=== PATIENT | male | born 1940 | race Caucasian/White ===

== ENCOUNTER 2023-12-19 09:24 | Inpatient (IN) | payer MEDICARE, BC, SELFPAY ==
[2023-12-17 15:09] VITALS: BP 163/74
[2023-12-17 15:33] LABS: % Basophils 0.5 % (0-2); % Eosinophils 1.4 % (0-6); % Immature Granulocytes 0.3 % (0-0.5); % Lymphocytes 16.3 % (20.5-51.1); % Neutrophils 74.5 % (42.2-75.2); Absolute Eosinophils 0.1 10^3/uL (0-0.7); Absolute Lymphocytes 1.1 10^3/uL (1.2-3.4); Absolute Monocytes 0.5 10^3/uL (0.1-0.6); Absolute Neutrophils 4.9 10^3/uL (1.4-6.5); Hematocrit 36.6 % (39.0-52.0); Hemoglobin 12.9 g/dL (13.0-18.0); Mean Corp Hgb Conc. 35.2 g/dL (33.0-37.0); Mean Corpuscular Hgb 29.5 pg (27.0-31.0); Mean Corpuscular Volume 83.6 fL (80.0-94.0); Mean Platelet Volume 8.9 fL (7.4-10.4); Nucleated Red Blood Cells % 0 % (-); Platelet Count 109 10^3/uL (130-400); Red Blood Cell Count 4.38 10^6/uL (4.70-6.10); Red Cell Dist. Width 13.1 % (11.5-14.5); White Blood Cell Count 6.6 10^3/uL (4.8-10.8)
[2023-12-17 15:57] LABS: ALT (SGPT) 22 U/L (0-50); AST (SGOT) 28 U/L (17-59); Albumin 3.9 g/dl (3.5-5.0); Alkaline Phosphatase 43 U/L (38-126); Blood Urea Nitrogen 22 mg/dl (9-20); Calcium 9.3 mg/dl (8.4-10.2); Carbon Dioxide 27 mmol/L (22-30); Chloride 101 mmol/L (98-107); Glucose 100 mg/dl (70-99); Sodium 138 mmol/L (135-145); Total Bilirubin 0.7 mg/dl (0.2-1.3); Total Protein 6.4 g/dl (6.3-8.2); eGFR > 60.00
[2023-12-17 16:06] LABS: Troponin I < 0.012 ng/ml
[2023-12-17 16:17] VITALS: BP 149/62
--- NOTE | 2023-12-17 16:34 | CON.CAR ---
Addendum entered and electronically signed by Fly Ordonez DO 12/17/23 20:58:
I saw and examined the patient.
The Slag Mixer's note was reviewed and I agree with the note.
Comment:
Plan:
Chest pain with radiation to left shoulder typical of his prior angina.
Cont to trend troponin
Discussed options and pt is agreeable and would prefer cardiac cath to eval coronary anatomy.
Check echo
Add beta efraín, Toprol XL 25 mg tonight
Monitor Bps
Hold ARB in anticipation of cath.
Cont ASA
Check lipids. He has h/o statin intolerance. Continue Vascepa.
Discussed with his primary feedlot manager.
�
Original Note:
Consultation
Consultation Request
Date/Time Consultation Requested: 12/17/2023
Date/Time Consultation Performed: 12/17/2023
Requesting Provider: Dr. Rockwell
Performing Provider: Dr. Ordonez
Reason for Consultation: Chest pain
Medical History
-
History of Present Illness:
HPI: Patient came to [facility] today with chest pain and cardiology was asked to evaluate in the ER. Patient spends part of the year in [place] and reports episodes of chest pain with emotional distress earlier this year, but no symptoms with exertion.
Patient came to [facility] today after an episode of exertional chest pain while on a walk yesterday. patient was less than 10 minutes into his usual 30 minute walk yesterday when he started with chest pain into his left shoulder which is his anginal
equivalent. Pain improved with rest. No pain at rest. No recurrence of pain. 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 Patient with h/o multiple PCIs and then finally CABG in 2014, which is almost 10 years ago.
PMH:
CAD
s/p CABG X3 (ROBLES to LAD, SVG sequential to D1 and OM) 02/2014
prior intervention 1994/1999/
Paroxysmal atrial fibrillation, post-op without recurrence
HTN
Hyperlipidemia
Statin intolerance
CKD 3, solitary kidney
Gout
RBBB
Bullous pemphigoid
Past Medical History
Past Medical History: Other (In HPI)
Past Surgical History: Cardiac (CABG x 3 in 02/2014), Tonsilectomy and Other (Left nephrectomy, hernia repair)
Social History
Tobacco: Former Smoker
Alcohol: Occasional
Personal:
Living: With Family
Employment: Retired
Family History
Family History: CAD
Allergies / Home Medications
Allergy/AdvReac Type Severity Reaction Status Date / Time
atorvastatin calcium Allergy personality Verified 12/17/23 15:15
[From Lipitor] changes
and muscle
problems .
fenofibrate nanocrystallized Allergy muscle Verified 12/17/23 15:15
[From Tricor] problems
and
persoality
changes
fenofibrate,micronized Allergy muscle Verified 12/17/23 15:15
[From Tricor] problems
and
personality
changes
lovastatin [From Mevacor] Allergy personality Verified 12/17/23 15:15
changes
and muscle
problems
simvastatin [From Zocor] Allergy personality Verified 12/17/23 15:15
changes
and muscle
problems
�Medication �Instructions �Recorded �Confirmed �Type
rosuvastatin 5 mg tablet 5 mg PO DAILY High cholesterol 10/08/20 07/11/21 History
allopurinol 100 mg tablet 50 mg PO DAILY Gout 10/21/20 07/11/21 History
icosapent ethyl 1 gram capsule 1 gm PO DAILY High cholesterol 10/21/20 07/11/21 History
(Vascepa)
prednisone 10 mg tablet 2.5 mg PO DAILY inflammation 10/21/20 07/11/21 History
tamsulosin 0.4 mg capsule 0.4 mg PO QPM Urinary issue 10/21/20 07/11/21 History
amlodipine 2.5 mg tablet 2.5 mg PO QPM Blood pressure 02/08/21 07/11/21 History
aspirin 81 mg tablet,delayed 81 mg PO DAILY Blood clot 02/08/21 07/11/21 History
release prevention/tx
losartan 25 mg tablet 25 mg PO DAILY Blood pressure 02/08/21 07/11/21 History
Review of Systems
-
History Source: Patient
All other systems: Negative unless noted
Physical Exam
Vital Signs
Temp Pulse Resp BP Pulse Ox
98.4 F 67 16 163/74 96
12/17/23 15:09 12/17/23 15:09 12/17/23 15:09 12/17/23 15:09 12/17/23 15:09
GEN: NAD. AAOx3
HEENT: EOMI, MMM
LUNGS: CTA B/L, no wheezes or rales
CV: Reg, S1/S2, 2/6 BSM
ABD: soft, BS+, NT, ND
EXT: No clubbing, cyanosis, lesions or edema B/L
NEURO: Gross non-focal
SKIN: Gouty tophi. No rash
Lab Results
12/17/23 15:22
12/17/23 15:22
Troponin I < 0.012 ng/ml 12/17/23 15:22
Impression / Plan
-
PCP: Dr. Cruz
Serging Machine Operator Automatic: Dr. Cherry Sanchez
Impression:
Presented with chest discomfort
Frequent PACs and PVCs
CAD
s/p CABG X3 (ROBLES to LAD, SVG sequential to D1 and OM) 02/2014
prior intervention/stents 1994/1999/2002/2012
Paroxysmal atrial fibrillation, post-op without recurrence
HTN
Hyperlipidemia
Statin intolerance
CKD 3, solitary kidney
Gout, tophaceous gout
RBBB
h/o bullous pemphigoid
Exercise nuclear stress test 10/30/2019: Patient completed 9 minutes and 0 seconds of the Eric protocol achieving 10 METS and 88% maximum predicted heart rate. Perfusion imaging reveals a small area of mildly decreased perfusion that is fixed in the
basal inferior segment, mid anterior segment, consistent with soft tissue attenuation. EF 51%.
Echo 01/31/2018: EF 55 to 60%, mild to moderate concentric LVH, no R WMA, trace TR, estimated PAP 27 mmHg
Echo 10/28/19: EF 55-60%, moderate LVH, mild MR, mild AI, normal RV
Plan:
-Patient came to [facility] today with chest pain and cardiology was asked to evaluate in the ER. Patient spends part of the year in [place] and reports episodes of chest pain with emotional distress earlier this year, but no symptoms with exertion.
Patient came to [facility] today after an episode of exertional chest pain while on a walk yesterday. patient was less than 10 minutes into his usual 30 minute walk yesterday when he started with chest pain into his left shoulder which is his anginal
equivalent. Pain improved with rest. No pain at rest. No recurrence of pain. 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 Patient with h/o multiple PCIs and then finally CABG in 2014, which is almost 10 years ago.
-Troponin undetectable x1. Recheck in 3 hours.
-Will plan on cardiac cath in AM
-ECG without acute ischemic changes as reviewed by me.
-Frequent PACs and PVCs on ECG and patient reports palpitations going back many months. Patient is not taking any AV lizbeth blockers. Will add Lopressor 12.5 mg BID
-Cont aspirin 81 mg daily
-Hold losartan in anticipation of cath
-Check echo
-Chest x-ray pending
-He has h/o statin intolerance. Continue Vascepa.
-Check CVE
--- NOTE | 2023-12-17 16:58 | ED.GENMED ---
History of Present Illness
General
Chief Complaint: Chest Pain
Source: patient, records and physician (Affiliate Marketing Specialist)
Exam Limitations: none
Time Seen by Provider: 12/17/23 16:29
Nursing documentation reviewed up to this point in time: agreed with
History of Present Illness
History of Present Illness:
83-year-old male with past medical history of hypertension, hyperlipidemia, DVT, renal cancer status post nephrectomy, CAD status post stents and CABG (follows with Dr. Cherry Sanchez for cardiology) who presents to the emergency department
referred by his business education instructor for evaluation of chest pain. Patient reports that for the past few days he has been having occasional pains in the left shoulder�he says that he thought that they could be related to a rotator cuff issue but yesterday
he had some exertional chest pain rating to the shoulder that felt similar to prior anginal symptoms. Notified his business education instructor and he was sent to the ER for evaluation. He did have some mild dizziness but denies any other symptoms yesterday. He
denies any chest pain at present.
Past History
Past History
ED Past Medical History: CAD and Other (Coronary artery disease status post stents, hypertension, hyperlipidemia, gout, arthritis)
ED Past Surgical History: Cardiac
Social History
Tobacco: Non-smoker
Alcohol: Occasional
Drug: Former user
Personal: Single
Living: with family
Employment: Retired
Family History
Family History: CAD
Review of Systems
Review of Systems
All Other Systems: ROS reviewed and negative except as documented in HPI and ROS
Respiratory: Denies trouble breathing
Cardiac: Reports chest pain; Denies palpitations
ABD/GI: Denies abdominal pain
Musculoskeletal: Reports joint pain (Shoulder pain)
Neurological: Reports dizzy
Phy Exam
Physical Exam
Physical Exam:
General: Awake, alert, oriented x3 and quite pleasant; no acute distress
Head: Normocephalic, atraumatic
Eyes: Conjunctiva normal, sclera anicteric
Throat: Airway intact, handling secretions
Neck: Trachea midline, no JVD noted
Lungs: Clear to auscultation bilaterally, no wheezing, rales, rhonchi
Heart: Regular rate and rhythm, no murmurs, gallops, or rubs appreciated
Neuro: No gross deficits
Extremities: No edema in extremities, warm and well-perfused
Scores
Heart Failure Risk
Heart Failure Risk Score: Not Applicable
Heart Score for Chest Pain Patients
STEMI patient?: No
History: Highly Suspicious
ECG: Nonspecific Repolarization
Age: >/= 65 years
Risk Factors: >/= 3 Risk Factors or History of CAD
Troponin: </= Normal Limit
Heart Score for Chest Pain Patients: 7
Heart Score Risk: 72.7 % MACE over next 6 weeks
Withdrawal Assessment of Alcohol
Withdrawal Assessment Completed?: Not applicable
Course
Orders/Labs/Results
Orders:
Orders
12/17/23 14:39
Electrocardiogram (*1) Urgent
Reason for Study: Chest Pain
EKG- Treatment ONCE
12/17/23 15:22
Complete Blood Count/With Diff Urgent
Comprehensive Metabolic Panel Urgent
Troponin I Urgent
12/17/23 16:30
CR Chest - 2 Views Urgent
Comment:
Reason For Exam: chest pain
12/17/23 16:57
CARDIOLOGY CONSULT Urgent
Consulting Provider: Fly Ordonez
Was physician already notified: Yes
12/17/23 17:21
Admit/Transfer Patient As Directed
Co-Sign Provider:
Level of Care: Observation services
Assign to:: IVU
Physician / Group: MIGNON, Dr. Ordonez
Diagnosis: Chest pain, [place]
Reason for Hospitalization: Chest pain, [place]
Expected length of stay greater than two midnights?: Yes
ELOS- Estimated Length of Stay in days: 2
I certify the patient meets the requirements for IP care: Yes
PRN Pain Medication Management As Directed
May give lesser potent ordered pain med per pt: Yes
preference::
Protocol:: Medication orders for pain may be administered in a
manner that supports deferring to patient preference
when the pt is:
- Requesting an ordered lesser potent pain medication.
Least to most potent pain medications are defined
as: acetaminophen < NSAID < tramadol < opioids
(morphine, oxycodone, hydromorphone).
- Requesting a lesser dose of the same medication IF
ORDERED.
- Requesting a less intrusive route of administration
if both routes are prescribed by the provider (PO <
IV).
12/17/23 17:22
Code Status As Directed
Resuscitation Status: Full Code
12/17/23 18:22
Troponin I Urgent
Abnormal Lab Results
12/17/23
15:22
RBC 4.38 L 10^6/uL
(4.70-6.10)
Hgb 12.9 L g/dL
(13.0-18.0)
Hct 36.6 L %
(39.0-52.0)
Plt Count 109 L 10^3/uL
(130-400)
Absolute Lymphs (auto) 1.1 L 10^3/uL
(1.2-3.4)
Lymphocytes % 16.3 L %
(20.5-51.1)
BUN 22 H mg/dl
(9-20)
Glucose 100 H mg/dl
(70-99)
12/17/23 15:22
12/17/23 15:22
Vital Signs
Initial and Last Documented VS:
Initial Vital Signs
Temp Pulse Resp BP Pulse Ox
36.9 C 67 16 163/74 96
12/17/23 15:09 12/17/23 15:09 12/17/23 15:09 12/17/23 15:09 12/17/23 15:09
Last Documented Vital Signs
Temp Pulse Resp BP Pulse Ox
36.9 C 66 14 149/62 99
12/17/23 15:09 12/17/23 16:45 12/17/23 16:45 12/17/23 16:17 12/17/23 16:45
MDM/Problems Addressed
Differential Diagnosis Includes:
Angina/ACS, musculoskeletal pain, GERD, PE considered less likely clinically
MDM/Problems Addressed:
83-year-old male presents to the emergency room for evaluation of exertional chest pain and left shoulder pain similar to prior anginal symptoms. Referred to ER by cardiology. Hypertensive in triage improved by my assessment, rest of vitals
normal. Physical exam as above. EKG shows atrial fibrillation with PVCs, right bundle branch block, no acute ischemic changes. He was seen in triage labs sent off including a CBC which showed marginal anemia as well as some thrombocytopenia with
a platelet count of 109�has been low normal in the past. CMP no clinically significant abnormalities. Initial troponin undetectable. Will trend out troponin. Check chest x-ray. Discussed case with cardiology they are evaluating at bedside.
Reassess after the above.
Cardiology evaluated�plan to admit to their service.
Chronic conditions affecting care:
CAD, hypertension, hyperlipidemia
Chronic conditions affecting care: HTN and CAD
Acute Exacerbation and/or Progression of Chronic Illness:
Acutely hypertensive improved without intervention continue to monitor but no emergent antihypertensives indicated at present
Acute Exacerbation and/or Progression of Chronic Illness: HTN
*Radiology
Radiology exam reviewed: preliminary read by ED provider
*Pulse Oximetry
Patient hypoxic: no
*EKG
Interpreted by ED Provider?: Yes
Heart Rate: 73
Rate: normal
Rhythm: a-fib and PVC's
Interval: normal interval
QRS Pattern: right bundle branch block
Ischemia: no ischemia
*Critical Care Note
Total Time (30-74mins, 75-104mins- exclusive of procedures): Not Applicable
Data Reviewed
Review of Other/Old Records Reveals: Labs and Records
Source: patient, records and physician
Patient Management
Discussion with other providers: Dam Operator (Discussed with cardiology)
Escalation/DeEscalation of care consider admission/obs:
Admission indicated
ED Attending Note
-
Portions of this chart may have been created with voice recognition software.� Occasional wrong word or��sound alike� substitutions may have occurred due to the inherent limitations of voice recognition software.
Discharge Plan
Departure
Patient Disposition: Admit
Date of Disposition: 12/17/23
Time of Disposition: 17:29
Admit to doctor: Laura
Presentation/result/management discussed w/ accepting MD/DO: cardiology
Discharge Problem:
Chest pain
Prescriptions:
No Action
rosuvastatin 5 MG tablet
5 mg PO DAILY
allopurinol 100 MG tablet
100 mg PO DAILY
tamsulosin 0.4 MG capsule
0.4 mg PO QPM
icosapent ethyl [Vascepa] 1 GM capsule
1 gm PO BID
amlodipine 2.5 MG tablet
2.5 mg PO QPM
losartan 25 MG tablet
25 mg PO DAILY
ascorbic acid (vitamin C) [Vitamin C] 500 mg Tablet
500 mg PO DAILY
aspirin 81 mg Tablet,Chewable
81 mg PO DAILY
melatonin 5 mg Tablet
5 mg PO HSPRN PRN (Reason: sleep)
Referrals:
Chidi Cruz MD [Family Provider] -
Interventions
Interventions:
*Risk Screen - Suicide Last Done: 12/17/23 15:09
*General Assessment Last Done: 12/17/23 15:09
*Neglect/Abuse Screening Last Done: 12/17/23 15:09
ED- Cardiac Assessment Last Done: 12/17/23 16:55
Discharge Date and Time
Print Language: YI
[2023-12-17 17:28] VITALS: BMI 25.0
[2023-12-17 18:00] VITALS: BP 146/69
[2023-12-17 19:20] LABS: Troponin I < 0.012 ng/ml
[2023-12-17 19:24] VITALS: BP 172/89
[2023-12-17] MEDS: TOPROL XL 25 MG PO (20:14)
[2023-12-17] MEDS: FLOMAX PO (20:14)
[2023-12-17] MEDS: NORVASC PO (20:14)
[2023-12-17 20:47] VITALS: BP 153/71
--- NOTE | 2023-12-17 21:16 | PTCARENOTE ---
Received patient from ED. SR on the monitor, HR in the 70s. Pts BP 172/89. Order for Toprol obtained from Dr. Ordonez and administered as per APR. Pt oriented to room and plan of care and NPO at midnight discussed with pt, pt verbalizes understanding.
No complaints from pt at this time.
[2023-12-17 23:09] VITALS: BP 145/63
[2023-12-18] VITALS (10 sets, daily range): BP systolic 121–161; BP diastolic 64–82; BMI 25.2
[2023-12-18 03:59] LABS: Blood Urea Nitrogen 21 mg/dl (9-20); Carbon Dioxide 27 mmol/L (22-30); Chloride 103 mmol/L (98-107); Estimated Creatinine Clearance 44 ml/min; Glucose 91 mg/dl (70-99); HDL Cholesterol 26 mg/dl; LDL Cholesterol, Calculated 57 mg/dl; Potassium 4.1 mmol/L (3.5-5.1); Sodium 139 mmol/L (135-145); Total Cholesterol 121 mg/dl (50-199); Triglyceride 192 mg/dl (10-149); Very Low Density Lipoprotein 38 mg/dl (0-30); eGFR > 60.00
[2023-12-18 04:11] LABS: Troponin I 0.015 ng/ml
--- NOTE | 2023-12-18 07:50 | PTCARENOTE ---
Assumed care of pt from prev nsg shift, AAOx3 w/no c/o CP or SOB. Pt ambulating in the rm & halls frequently. Pt's VS stable w/HR in the 60's, & BP this AM 158/69. Pt SR w/freq PVC's on telemetry monitoring. Plan of care discussed w/pt; pt
anticipating cardiac cath today. Pt w/call vazquez within reach & plan of care ongoing.
[2023-12-18] MEDS: CRESTOR 5 MG PO (09:12)
[2023-12-18] MEDS: VITAMIN C 500 MG PO (09:13)
[2023-12-18] MEDS: LOW STRENGTH ASPIRIN 81 MG PO (09:13)
[2023-12-18] MEDS: ZYLOPRIM 100 MG PO (09:13)
[2023-12-18] MEDS: LOPRESSOR 12.5 MG PO ×2 (09:13→19:58)
--- NOTE | 2023-12-18 12:00 | CM ---
Chart reviewed. Patient is independent of ADLS, lives with his in a 1 sTH, ramps to access, 0 DME. Plan is for the patient to return home. CM to follow
--- NOTE | 2023-12-18 14:30 | PTCARENOTE ---
Report given to Madai in the technology lab teacher; pt taken to technology lab teacher in his bed. Tonya Ferris notified pt was taken to technology lab teacher.
--- NOTE | 2023-12-18 14:31 | ITS.CL.CATH ---
Electrologist - Catheterization
Cardiac Catheterization
Procedure Report:
LEFT HEART CATHETERIZATION AND CORONARY OCCLUSION
Date of Procedure: December 18, 2023
Referring: Cherry Sanchez
PROCEDURES:
1. Left heart catheterization, coronary angiogram.
2. Selective graft angiography.
3. Ultrasound-guided access
4. Successful percutaneous coronary artery intervention of focal 80% stenosis in kiana distal LAD via the ROBLES graft with a 2.25 x 15 mm Medtronic [place] frontier drug-eluting stent, postdilated with a 2.25 x 12 mm NC balloon at 18 nguyen with an
excellent angiographic result.
INDICATION: Patient is a 83-year-old gentleman with past medical history of hypertension, hyperlipidemia, statin intolerant, solitary kidney with CKD stage III, chronic right bundle branch block, bullous pemphigoid as a complication after
COVID-vaccine in 2020, coronary artery disease with prior stents, last in 2012 with subsequent CABG in 2014 with a ROBLES to LAD and a saphenous vein graft sequential to D1 and OM completed at [facility], paroxysmal atrial fibrillation,
postoperatively without recurrence, not on any chronic anticoagulation who presents with recurrent episodes of exertional chest discomfort and negative troponins now being referred for left heart catheterization to rule out obstructive CAD.
ACCESS: Left radial artery, 6 [place] sheath, under ultrasound guidance
HEMODYNAMICS : (mmHg)
AO (s/d) : 110/52
LV (s/d) : 117/12
LVEDP : 12
CORONARY FINDINGS
DOMINANCE: Right
LEFT MAIN: Left main appears to be cloacal in origin based on prior caths.
LEFT ANTERIOR DESCENDING: The left main artery is a medium caliber and appears to have a ostial to proximal 100% in-stent occlusion with mid to distal LAD being supplied by a patent ROBLES graft and the diagonal branch being supplied by a patent
saphenous vein graft.
CIRCUMFLEX: The left circumflex artery is a medium caliber vessel with a tubular 80% proximal stenosis with total occlusion in the midportion with OM branches supplied by a patent saphenous vein graft.
RIGHT CORONARY ARTERY: Known to be occluded and therefore was not selectively shot.
GRAFT ANGIOGRAPHY:
1. ROBLES to the LAD: ROBLES conduit is moderately tortuous but otherwise patent. [place] LAD just beyond the touchdown has a focal 80% stenosis which is thought to be the likely culprit of presenting symptoms and intervention was performed.
2. SVG to OM/D1: The saphenous vein graft which is sequential to OM1 and diagonal is widely patent. The conduit between OM1 and diagonal touchdown has a eccentric 50 to 60% stenosis
CORONARY INTERVENTION: Decision was made to move forward with intervention percutaneously of the distal k[place] LAD through the ROBLES graft. The ROBLES was selectively engaged using a 90cm 6 [place] DAVID guide catheter. Additional heparin was given to
maintain a therapeutic ACT throughout the case. Initially we tried wiring with a 190 cm 0.014' run-through coronary wire however given significant tortuosity within the ROBLES graft we could not advance this beyond the third band. This wire was
taken out and we next brought in a 300 cm 0.014' BMW wire through a mini microcatheter and with microcatheter support we were able to navigate the tortuosity with some difficulty and succeeded and placing the wire into the apical LAD. The
microcatheter was taken out. We predilated the lesion using a 2.0 x 10 mm semicompliant balloon and had good expansion. Then we tried to deliver the stent however we could not navigate the tortuosity and therefore brought in a 6 [place] guide liner
for support. Through the guide liner we were able to deliver with significant difficulty a 2.25 x 15 mm Medtronic [place] frontier drug-eluting stent which was deployed at 14 nguyen. The stent was postdilated using a 2.25 x 12 mm NC trek balloon at 18
nguyen with an excellent angiographic result and NELLI-3 flow into the distal vessel. Patient tolerated procedure well with no acute complications. He was loaded with 600 mg of Plavix at the end of the case.
SEDATION: 104 minutes of procedural sedation was utilized. An independent medical chief technician was present to assist with and help manage the patient's level of consciousness and physiologic status.
RADIATION SUMMARY: Fluoro Time (min): 34.4, Dose (mGy): 774.75, DAP (Gy.cm2) : 62.4
Closure Device: Vascular band over the left radial artery, 11 cc of air.
CONCLUSIONS
1. Significant kiana coronary artery disease.
2. Successful percutaneous coronary artery intervention of focal 80% stenosis in kiana distal LAD via the ROBLES graft with a 2.25 x 15 mm Medtronic [place] frontier drug-eluting stent, postdilated with a 2.25 x 12 mm NC balloon at 18 nguyen with an
excellent angiographic result.
3. The saphenous vein graft which is sequential to OM1 and diagonal is widely patent. The conduit between OM1 and diagonal touchdown has a eccentric 50 to 60% stenosis.
4. Normal LVEDP at 12mmHg.
RECOMMENDATIONS
1. Dual antiplatelet therapy with daily baby aspirin and 75 mg of Plavix along with cholesterol lowering medication and beta-efraín as tolerated.
2. Full echocardiogram to assess biventricular function.
3. Wean radial band per protocol.
4. Aggressive management of cardiovascular risk factors.
5. Outpatient referral for cardiac rehab.
Copy to: Duglas Dillon.
Leial Enamorado MD, [facility]
[2023-12-18 16:10] LABS: ACT-LR - POC 295 Seconds (116-155)
[2023-12-18 17:03] LABS: ACT-LR - POC 279 Seconds (116-155)
[2023-12-18] MEDS: FLOMAX 0.4 MG PO (18:30)
[2023-12-18] MEDS: NORVASC 2.5 MG PO (18:30)
--- NOTE | 2023-12-18 21:44 | PTCARENOTE ---
Pt. received at change of shift. Pt. seen and assessed in room. PT. AOX3, VS WNL. Tele reading NSR w/ occasional PVCs 60s-70s. Left radial site c/d/i, began removing air at 191. Continuing to remove air from TR band per protocol. No complaints at
this time. RN verbalized plan of care, pt. verbalized understanding. Call vazquez within reach. Continuing to monitor at this time.
--- NOTE | 2023-12-18 22:46 | PTCARENOTE ---
TR band removed at 2244. Gauze and tegaderm placed on L radial. Pt. instructed not to push up on directed hand. VS WNL. Continuing to monitor at this time.
[2023-12-19 03:01] VITALS: BP 158/80
[2023-12-19 04:21] LABS: Hematocrit 36.4 % (39.0-52.0); Hemoglobin 13.1 g/dL (13.0-18.0); Mean Corpuscular Hgb 29.7 pg (27.0-31.0); Mean Corpuscular Volume 82.5 fL (80.0-94.0); Mean Platelet Volume 9.3 fL (7.4-10.4); Platelet Count 106 10^3/uL (130-400); Red Blood Cell Count 4.41 10^6/uL (4.70-6.10); Red Cell Dist. Width 12.9 % (11.5-14.5)
[2023-12-19 04:30] LABS: Blood Urea Nitrogen 22 mg/dl (9-20); Calcium 8.7 mg/dl (8.4-10.2); Carbon Dioxide 20 mmol/L (22-30); Chloride 105 mmol/L (98-107); Estimated Creatinine Clearance 44 ml/min; Glucose 93 mg/dl (70-99); Sodium 137 mmol/L (135-145); eGFR > 60.00
[2023-12-19 07:08] VITALS: BMI 25.0
[2023-12-19 07:10] VITALS: BP 128/72
--- NOTE | 2023-12-19 07:50 | PTCARENOTE ---
Assumed care of pt from prev nsg shift, AAOx3 w/no c/o CP or SOB. Pt ambulating in the rm frequently. Pt's VS stable w/HR in the 60's, & BP this AM 128/72. Pt SR w/occas PVC's on telemetry monitoring. Pt w/L radial site w/dressing C/D/I w/no signs
or symptoms of bleeding or hematoma. Plan of care discussed w/pt; pt anxious for D/C today. Pt w/call vazquez within reach & plan of care ongoing.
[2023-12-19] MEDS: ZYLOPRIM 100 MG PO (09:04)
[2023-12-19] MEDS: LOPRESSOR 12.5 MG PO (09:05)
[2023-12-19] MEDS: VITAMIN C 500 MG PO (09:05)
[2023-12-19] MEDS: PLAVIX 75 MG PO (09:05)
[2023-12-19] MEDS: CRESTOR 5 MG PO (09:05)
[2023-12-19] MEDS: LOW STRENGTH ASPIRIN 81 MG PO (09:05)
--- NOTE | 2023-12-19 09:23 | W.PN.CARDCBS ---
Addendum entered and electronically signed by Ayesha Hill PA-C 12/19/23 14:23:
[id number]
Addendum entered and electronically signed by Ayesha Hill PA-C 12/19/23 10:55:
Echo completed prior to admission.
Echo 12/19/23: Normal LVEF, stable mild valve disease
Addendum entered and electronically signed by Cherry Sanchez MD 12/19/23 10:15:
I saw and examined the patient.
The Brand Marketing Coordinator's note was reviewed and I agree with the note.
Comment: Status post intervention of LAD. Doing well. We discussed dual antiplatelet therapy. He understands not to interrupt treatment.
Blood pressure at goal. Lipids at goal. Statin intolerance noted. Continue low-dose statin. Continue current medications.
He will increase activity consider cardiac rehab but he may be going to [place] and he will exercise on his own at that time.
Echo pending for discharge. Carotid ultrasound pending.
Close follow-up in the office discussed.
Original Note:
Today's Communication / Plan
-
D/C to home pending echo and carotid u/s
Plan is for d/c to home
Impression / Plan
-
PCP: Dr. Cruz
Barrel Filler: Dr. Cherry Sanchez
Impression:
Presented with chest discomfort
Frequent PACs and PVCs
CAD
s/p CABG X3 (ROBLES to LAD, SVG sequential to D1 and OM) 02/2014
prior intervention/stents /
s/p 2.25 mm Ronnell MAYA to [place] distal LAD via ROBLES graft 12/18/23
Paroxysmal atrial fibrillation, post-op without recurrence
HTN
Hyperlipidemia
Statin intolerance
CKD 3, solitary kidney
Gout, tophaceous gout
RBBB
h/o bullous pemphigoid
Exercise nuclear stress test 10/30/2019: Patient completed 9 minutes and 0 seconds of the Eric protocol achieving 10 METS and 88% maximum predicted heart rate. Perfusion imaging reveals a small area of mildly decreased perfusion that is fixed in the
basal inferior segment, mid anterior segment, consistent with soft tissue attenuation. EF 51%.
Echo 01/31/2018: EF 55 to 60%, mild to moderate concentric LVH, no R WMA, trace TR, estimated PAP 27 mmHg
Echo 10/28/19: EF 55-60%, moderate LVH, mild MR, mild AI, normal RV
Echo 12/19/23: Study pending
Plan:
-Troponin serially normal.
-Check echo, ordered.
-Check carotid u/s.
-Patient tolerated 2.25 mm Ronnell MAYA to [place] LAD via ROBLES graft. No recurrence of left shoulder pain which is his anginal equivalent.
-Outpatient dose of aspirin 81 mg dialy continued and new to Plavix which he previously tolerated well. Instructed to watch for /GI bleeding.
-Frequent PACs and PVCs on ECG and patient reports palpitations going back many months. Patient is not taking any AV lizbeth blockers. Added Lopressor 12.5 mg BID this admission
-Outpatient doses of losartan 25 mg daily and amlodipine 2.5 mg daily resumed
-He has h/o statin intolerance. Continue Vascepa. LDL 57 this admission
-D/C to home today after echo and carotid u/s
HPI: Patient came to [facility] today with chest pain and cardiology was asked to evaluate in the ER. Patient spends part of the year in [place] and reports episodes of chest pain with emotional distress earlier this year, but no symptoms with exertion.
Patient came to [facility] today after an episode of exertional chest pain while on a walk yesterday. patient was less than 10 minutes into his usual 30 minute walk yesterday when he started with chest pain into his left shoulder which is his anginal
equivalent. Pain improved with rest. No pain at rest. No recurrence of pain. 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 Patient with h/o multiple PCIs and then finally CABG in 2014, which is almost 10 years ago.
Progress Note - Barrel Filler
Subjective
Date of Service: December 19, 2023
Feels well, no chest pain
Objective
Labs:
12/19/23 03:12
12/19/23 03:12
Labs
Hgb 13.1 g/dL (13.0-18.0) 12/19/23 03:12
Hct 36.4 % (39.0-52.0) L 12/19/23 03:12
Plt Count 106 10^3/uL (130-400) L 12/19/23 03:12
Sodium 137 mmol/L (135-145) 12/19/23 03:12
Potassium 4.0 mmol/L (3.5-5.1) 12/19/23 03:12
BUN 22 mg/dl (9-20) H 12/19/23 03:12
Creatinine 1.2 mg/dL (0.7-1.3) 12/19/23 03:12
Glucose 93 mg/dl (70-99) 12/19/23 03:12
Troponins
12/17/23 12/17/23 12/18/23
15:22 18:46 02:52
Troponin I < 0.012 < 0.012 0.015
Vital Signs and I&O:
Vital Signs
Temp Pulse Resp BP Pulse Ox
97.3 F 73 18 128/72 98
12/19/23 07:08 12/19/23 07:45 12/19/23 07:08 12/19/23 07:10 12/19/23 07:08
Vital Signs
Temp Pulse Resp BP Pulse Ox
97.3 F 73 18 128/72 98
12/19/23 07:08 12/19/23 07:45 12/19/23 07:08 12/19/23 07:10 12/19/23 07:08
Intake & Output
12/17/23 12/18/23 12/19/23 12/20/23
06:59 06:59 06:59 06:59
Intake Total 160 / 160
Output Total 700 / 700 1400 / 1400
Balance -700 / -700 -1240 / -1240
Physical Exam
Physical Exam
GEN: AAOx3
HEENT: MMM
LUNGS: CTA B/L, no wheezes or rales
CV: Reg, S1/S2, 2/6 BSM
ABD: soft, BS+, NT, ND
EXT: Left radial without hematoma or ecchymosis. No clubbing, cyanosis, lesions or edema B/L
NEURO: Gross non-focal
SKIN: Gouty tophi. No rash
--- NOTE | 2023-12-19 09:49 | W.DS.TRANS ---
DC Summary - Heavy Equipment Operator/Paver
-
Discharge Instructions:
Discharge Diagnosis/Procedures Chest pain, s/p angioplasty with stent to Left
Anterior Descending artery
Diet Low Cholesterol
Activity Other activity
Additional Activity See attached sheet
Driving Restrictions No driving for 24 hours
Bathing Restrictions OK to Shower
Other Services Cardiac Rehab
Instructions:
Stand-Alone Forms: DC Instructions- Cath/EP Lab
Changes to Home Medications: Yes
Discharge Medications:
DC Medications w/original date entered in [facility]
rosuvastatin 5 mg tablet 5 mg PO DAILY High cholesterol 10/08/20
allopurinol 100 mg tablet 100 mg PO DAILY Gout 10/21/20
icosapent ethyl 1 gram capsule (Vascepa) 1 gm PO BID High cholesterol 10/21/20
tamsulosin 0.4 mg capsule 0.4 mg PO QPM Urinary issue 10/21/20
amlodipine 2.5 mg tablet 2.5 mg PO QPM Blood pressure 02/08/21
losartan 25 mg tablet 25 mg PO DAILY Blood pressure 02/08/21
ascorbic acid (vitamin C) 500 mg tablet (Vitamin C) 500 mg PO DAILY 12/17/23
aspirin 81 mg chewable tablet 81 mg PO DAILY 12/17/23
melatonin 5 mg tablet 5 mg PO HSPRN PRN sleep 12/17/23
clopidogrel 75 mg tablet (Plavix) 75 mg PO DAILY Heart disease/condition #90 tabs 12/19/23
metoprolol tartrate 25 mg tablet 12.5 mg (1/2 x 25 mg) PO BID Heart disease/condition #180 tabs 12/19/23
Home Medication Changes
New to Plavix and Lopressor
Pending Results: No
[2023-12-19] MEDS: COZAAR 25 MG PO (10:49)
[2023-12-19 10:51] VITALS: BP 163/83
[2023-12-19 11:40] VITALS: BP 155/80
--- NOTE | 2023-12-19 12:07 | PTCARENOTE ---
D/C instructions discussed w/pt. Pt's IV line & telemetry D/C'd. Pt walked out w/staff w/daughter driving pt home. Pt left w/personal belongings including cell phone & supervisor char house & hearing aids.
== END 2023-12-19 11:52 | disposition home or self-care (01) | DRG 322 ==
LOC: IVU 09:24
PROVIDERS: Internal Medicine Interventional Cardiology; Nurse Practitioner Adult Health; Physician Assistant Medical; Registered Nurse; ADMITTING PHYSICIAN Nuclear Medicine Nuclear Cardiology; EMERGENCY PHYSICIAN Emergency Medicine; FAMILY PHYSICIAN Family Medicine
PROC: B211YZZ Fluoroscopy of Multiple Coronary Arteries using Other Contrast (ICD-10-PCS; 2023-12-18)
PROC: 4A023N7 Measurement of Cardiac Sampling and Pressure, Left Heart, Percutaneous Approach (ICD-10-PCS; 2023-12-18)
PROC: 027034Z Dilation of Coronary Artery, One Artery with Drug-eluting Intraluminal Device, Percutaneous Approach (ICD-10-PCS; 2023-12-18)
PROC: B213YZZ Fluoroscopy of Multiple Coronary Artery Bypass Grafts using Other Contrast (ICD-10-PCS; 2023-12-18)
DX: I25.10 Atherosclerotic heart disease of native coronary artery without angina pectoris (principal); I25.810 Atherosclerosis of coronary artery bypass graft(s) without angina pectoris; I48.0 Paroxysmal atrial fibrillation; I12.9 Hypertensive chronic kidney disease with stage 1 through stage 4 chronic kidney disease, or unspecified chronic kidney disease; N18.30 Chronic kidney disease, stage 3 unspecified; I45.10 Unspecified right bundle-branch block; E78.5 Hyperlipidemia, unspecified; M1A.9XX1 Chronic gout, unspecified, with tophus (tophi); Z90.5 Acquired absence of kidney; Z87.891 Personal history of nicotine dependence; Z86.718 Personal history of other venous thrombosis and embolism; Z85.528 Personal history of other malignant neoplasm of kidney; Z79.899 Other long term (current) drug therapy; Z79.82 Long term (current) use of aspirin
CPT/HCPCS: 71046; 80048; 80053; 80061; 84484; 85025; 85027; 85347; 93005; 93306; 93459; 93880; 99152; 99153; 99285; C1725; C1769; C1874; C1887; C1894; C9604; Q9967

== ENCOUNTER → 2024-10-24 08:45 | Outpatient (REF) | payer MEDICARE, BC, SELFPAY | LOC: MRI 08:45 | PROVIDERS: ATTENDING PHYSICIAN Surgery Vascular Surgery | DX: I70.1 Atherosclerosis of renal artery (principal) | CPT/HCPCS: 74185 ==